=== PATIENT | female | born 1995 | race Caucasian/White ===

== ENCOUNTER 2019-09-29 15:36 | Emergency (ER) | payer SELFPAY ==
[2019-09-29 15:44] VITALS: BP 124/78
--- NOTE | 2019-09-29 16:03 | ED ---
GI/ HPI - HPI Summary HPI Summary: Pt is a 23 y/o F presenting to the ED with a chief complaint of issues. She states shes had UTI symptoms since 1100/1200 this morning, including urgency, frequency, and dysuria. She also notes lower abd pain. She denies flank pain, fever, chills, N/V, vaginal discharge, or vaginal bleeding. LNMP 2wks ago. She is sexually active in a monogamous relationship, they do not use condoms but they both have been tested and are negative for STIs. - History of Current Complaint Chief Complaint: EDUrogenitalProblems Time Seen by Provider: 09/29/19 15:50 Stated Complaint: POSS UTI, AND CRAMPS PER PT Hx Obtained From: Patient Hx Last Menstrual Period: 2wks ago Onset/Duration: Started Hours Ago, Still Present Timing: Constant, Lasting Hours Severity: Moderate Current Severity: Severe Pain Intensity: 7 Location of Pain: Suprapubic Additional Location for Females: Vulva Pain Characteristics: Cramping Associated Signs and Symptoms: Positive: Dysuria, Abdominal Pain, UTI Symptoms. Negative: Nausea, Vomiting, Fever, Chills Additional Signs & Symptoms: Negative: Vaginal Bleeding, Vaginal Discharge Aggravating Factor(s): Urination Alleviating Factor(s): Nothing - Allergy/Home Medications Allergies/Adverse Reactions: Allergies Allergy/AdvReac Type Severity Reaction Status Date / Time No Known Allergies Allergy Unverified 09/29/19 15:44 PMH/Surg Hx/FS Hx/Imm Hx Previously Healthy: Yes Endocrine/Hematology History: Denies: Hx Diabetes History: Reports: Other Problems/Disorders - PCOS Infectious Disease History: No Infectious Disease History: Denies: Traveled Outside the [place] in Last 30 Days - Family History Known Family History: Negative: Diabetes - Social History Alcohol Use: None Hx Substance Use: No Substance Use Type: Reports: None Hx Tobacco Use: No Smoking Status (MU): Never Smoked Tobacco Review of Systems Negative: Fever, Chills Positive: Abdominal Pain. Negative: Vomiting, Nausea Positive: dysuria, frequency. Negative: discharge, flank pain, other - vaginal bleeding All Other Systems Reviewed And Are Negative: Yes Physical Exam - Summary Physical Exam Summary: Constitutional: Well-developed, Well-nourished, Alert. (-) Distressed Skin: Warm, Dry HENT: Normocephalic; Atraumatic Eyes: Conjunctiva normal Neck: Musculoskeletal ROM normal neck. (-) JVD, (-) Stridor, (-) Tracheal deviation Cardio: Rhythm regular, rate normal, Heart sounds normal; Intact distal pulses; Radial pulses are 2+ and symmetric. (-) Murmur Pulmonary/Chest wall: Effort normal. (-) Respiratory distress, (-) Wheezes, (-) Rales Abd: Soft, mild suprapubic and RLQ tenderness, (-) Distension, (-) Guarding, (- ) Rebound Musculoskeletal: (-) Edema Lymph: (-) Cervical adenopathy Neuro: Alert, Oriented x3 Psych: Mood and affect Normal Triage Information Reviewed: Yes Vital Signs On Initial Exam: Initial Vitals Temp Pulse Resp BP Pulse Ox 98.1 F 68 16 124/78 99 09/29/19 15:41 09/29/19 15:41 09/29/19 15:41 09/29/19 15:41 09/29/19 15:41 Vital Signs Reviewed: Yes Procedures - Sedation Patient Received Moderate/Deep Sedation with Procedure: No Diagnostics - Vital Signs Vital Signs Temp Pulse Resp BP Pulse Ox 09/29/19 15:41 98.1 F 68 16 124/78 99 - Laboratory Lab Statement: Any lab studies that have been ordered have been reviewed, and results considered in the medical decision making process. GIGU Course/Dx - Course Course Of Treatment: Patient is here symptoms consistent with cystitis. Patient 's overall well-appearing with no evidence of pyelonephritis or any intra- abdominal pathology. Patient has a UA which shows UTI. Patient was started on Macrobid. - Diagnoses Provider Diagnoses: UTI (urinary tract infection) Discharge ED - Sign-Out/Discharge Documenting (check all that apply): Patient Departure - Discharge Plan Condition: Stable Disposition: HOME Prescriptions: Nitrofurantoin Monohyd/M-Cryst [Macrobid 100 mg Capsule] 100 mg PO BID 5 Days # 10 cap Patient Education Materials: Urinary Tract Infection in Women (ED) Referrals: [facility] [Outside] Additional Instructions: Please take your prescribed medications as instructed. Return to the emergency department with any new or worsening fever, chills, abd pain, vomiting, or any other concerning symptoms. Follow up with your primary care provider in the next 1-3 days. - Billing Disposition and Condition Condition: STABLE Disposition: Home - Attestation Statements Document Initiated by Scribe: Yes Documenting Scribe: Deanna Marsh Provider For Whom Ashishibe is Documenting (Include Credential): Rc Pickering MD. Scribe Attestation: Deanna Sparks, scribed for Rc Pickering MD. on 09/29/19 at 1807. Scribe Documentation Reviewed: Yes Provider Attestation: The documentation as recorded by the ashishibDeanna verduzco accurately reflects the service I personally performed and the decisions made by , Rc Pickering MD. Status of Scribe Document: Viewed
[2019-09-29 16:12] LABS: Urine Appearance Cloudy; Urine Bilirubin Negative (Negative); Urine Blood Negative (Negative); Urine Color Yellow; Urine Glucose Negative (Negative); Urine Ketones Negative (Negative); Urine Nitrite Negative (Negative); Urine Protein Negative (Negative); Urine Specific Gravity 1.024 (1.010-1.030); Urine Urobilinogen Negative (Negative)
[2019-09-29 16:16] LABS: Urine Bacteria Absent (Absent); Urine Red Blood Cell Trace(0-2/hpf) (Absent); Urine Squamous Epithelial Cell Present (Absent); Urine White Blood Cell 3+(>20/hpf) (Absent)
== END 2019-09-29 16:22 | disposition home or self-care (01) ==
LOC: ED 15:36
DX: N39.0 Urinary tract infection, site not specified (principal); R30.0 Dysuria; R10.9 Unspecified abdominal pain
CPT/HCPCS: 81003; 81015; 87086; 99282